=== PATIENT | male | born 2000 | race Two or more races ===

== ENCOUNTER 2025-01-06 19:19 | Emergency (ER) | payer MEDICAID, SELFPAY ==
[2025-01-06 19:22] VITALS: BMI 21.9
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
[2025-01-06 19:26] VITALS: BP 145/85; PULSE 86; RESP 14; TEMP 37; O2SAT 99
[2025-01-06] MEDS: DIPHTH,PERTUSS(ACELL),TET VAC 0.5 ML SYR- ADULT IMi (19:41)
== END 2025-01-06 20:14 ==
PROVIDERS: Emergency Provider Emergency Medicine
DX: Z02.89 Encounter for other administrative examinations (principal); S71.111A Laceration without foreign body, right thigh, initial encounter; W26.0XXA Contact with knife, initial encounter; Z23 Encounter for immunization
CPT/HCPCS: 73552; 90471; 90715; 99283